=== PATIENT | male | born 1995 | race Caucasian/White ===

== ENCOUNTER 2021-09-26 11:23 | Outpatient (REF) | payer OTHER, SELFPAY ==
[2021-09-26 12:58] LABS: COVID-19 Test Negative (Negative); IDNOW Serial# 16C4AD1C
== END 2021-09-26 11:24 | disposition home or self-care (01) ==
LOC: HO.LAB 11:23
PROVIDERS: Visit Provider Internal Medicine
DX: Z20.822 Contact with and (suspected) exposure to COVID-19 (principal)
CPT/HCPCS: 87635; C9803

== ENCOUNTER 2021-10-02 08:19 | Outpatient (REF) | payer OTHER, SELFPAY ==
[2021-10-02 08:55] LABS: COVID-19 Test Negative (Negative); IDNOW Serial# 16C4AD1C
== END 2021-10-02 08:20 | disposition home or self-care (01) ==
LOC: HO.LAB 08:19
PROVIDERS: Visit Provider Internal Medicine
DX: Z20.822 Contact with and (suspected) exposure to COVID-19 (principal)
CPT/HCPCS: 87635; C9803

== ENCOUNTER 2024-08-06 16:05 | Outpatient (AMB) | payer OTHER, SELFPAY ==
[2024-08-06 16:06] VITALS: BP 122/80; PULSE 88; O2SAT 98
--- NOTE | 2024-08-06 16:06 | AM.OFFWIN_ITS ---
Intake Vital Signs 08/06/24 16:06 Height 5 ft 7 in BMI Reason not done Patient refused/unable BP 122/80 Blood Pressure Location Rt brachial Position Sitting Pulse 88 Pulse Source Pulse Oximeter Pulse Oximetry (%) 98 Intake Visit Reasons: [employer]-Work clearance from sick Intake Note: pt is here for needs note to go back to work Patient Tobacco Use Status: Never used Tobacco Allergies Seasonal Allergies Allergy (Mild, Verified 08/06/24 16:07) Sneezing Do you need a note to return to daycare/school/sports/work: Yes HPI HPI Comments History of Present Illness Details 29 y/o male patient who presents to the walk in asking for work note. He called out work the past 2 days because he had URI symptoms. His work is asking for a medical clearance note before patient may return to work. Today Pt denies any respiratory, or GI symptoms. PFSH Social History Patient Tobacco Use Status: Never used Tobacco Review of Systems Const All systems reviewed & are unremarkable except as noted in HPI and below Physical Exam Vital Signs: Last Vital Signs Pulse 88 08/06/24 16:06 BP 122/80 08/06/24 16:06 Pulse Ox 98 08/06/24 16:06 Const General: no acute distress Nutritional Appearance: obese Orientation/consciousness: patient oriented x3 Resp Effort & Inspection: normal respiratory effort Auscultation: clear to auscultation bilaterally Cardio Heart sounds: S1 normal heart sound present and S2 normal heart sound present Neuro General: patient oriented x3 Assessment & Plan Assessment & Plan (1) Return to work exam: Code(s): Z76.89 - Persons encountering health services in other specified circumstances Plan: Patient is cleared to return to work with no resctrictions. Coding Level of Care Code Est Pt Level 3 (33573) Diagnoses Return to work exam Z76.89 Time Spent (min) 15
== END 2024-08-06 16:47 | disposition home or self-care (01) ==
PROVIDERS: Visit Provider Nurse Practitioner Family
DX: Z76.89 Persons encountering health services in other specified circumstances (principal)

== ENCOUNTER → 2024-08-06 16:05 | Outpatient (BNVA) | payer OTHER, SELFPAY | PROVIDERS: Visit Provider Nurse Practitioner Family | DX: Z76.89 Persons encountering health services in other specified circumstances (principal) | CPT/HCPCS: 99212 ==